=== PATIENT | male | born 1950 | race Caucasian/White ===

== ENCOUNTER 2016-06-03 07:29 | Day surgery (SDC) | payer MEDICARE, OTHER ==
[2016-05-30 13:22] LABS: HEMATOCRIT 40.2 % (40.0-51.0); HEMOGLOBIN 13.7 g/dL (13.6-17.8)
[2016-05-30 13:40] LABS: BUN (BLOOD UREA NITROGEN) 16 MG/DL (6-23); CALCIUM, SERUM 8.3 MG/DL (8.5-10.4); CHLORIDE, SERUM 108 MMOL/L (96-112); CO2 (CARBON DIOXIDE) 27 MMOL/L (24-34); GFR AFRICAN AMERICAN 80 ML/MIN (>=60); GFR NON AFRICAN AMERICAN 69 ML/MIN (>=60); GLUCOSE, SERUM 97 MG/DL (60-99); POTASSIUM, SERUM 4.6 MMOL/L (3.5-5.3); SODIUM, SERUM 144 MMOL/L (135-148)
--- NOTE | ~2016-06-03 | OP ---
Record Of Operation [facility] [address] [place]. [address] NAME: GENOVEVA OLIVEIRA : 46 [place] [facility] [place] [id number] AGE: 66 ADM/REG DATE : 06/03/16 MR#: [id number] REPORT SERV DATE: 06/03/16 DICTATED BY: Beau KENT DATE: 06/03/16 REPORT STATUS : Draft TRANSCRIBED BY: MODL DATE: 06/03/16 DATE OF PROCEDURE: 06/03/2016 PREOPERATIVE DIAGNOSIS: Prostate cancer on active surveillance, PSA 7.31. POSTOPERATIVE DIAGNOSIS: Prostate cancer on active surveillance, PSA 7.31. PROCEDURE: Transrectal ultrasound-guided needle biopsy of the prostate. ANESTHESIA: MAC. COMPLICATIONS: None. DRAINS: None. BRIEF HISTORY: Mr. 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 He has been managed with active surveillance. His recent PSA was 7.31. He is here for surveillance biopsy. The risks of bleeding, infection, anesthesia, inability to detect cancer even if present, etc., were all discussed. There were no unanswered questions. DESCRIPTION OF PROCEDURE: Under excellent MAC anesthesia, the patient was placed in a left lateral decubitus position, knees to chest. Prostate gland measured approximately 40 mL. The biopsy gun was used to perform bilateral prostate biopsies, two from the left base, three from the left mid gland, two from the left apex, similarly two from the right base, three from the right mid gland, and two from the right apex. The patient tolerated the procedure well. There was minimal bleeding. We will discharge as an outpatient with the following instructions. DISCHARGE INSTRUCTIONS: 1. Home today. 2. Follow up in my office in one week to review pathology. 3. Call for fever or excessive bleeding. APRYL/AXEL Beau Kent M.D. / [id number] CC: Vini Carty M.D.
[~2016-06-03 07:29] MED LIST: ASAB PO; ASABAYER PO; AUG250 PO; BETAP120 PO; BETAPACE80 PO; CARDCD120 PO; CARDCD180 PO; CENTRUM PO; CIP5 PO; COUMADIN6 MG PO; DIGITEK0.25 MG PO; DILT-XR180 MG PO; DSS PO; ELIQUIS 5 MG TAB5 MG PO; LEVAQUIN750 MG PO; LEVOTHYROXIN100 MCG PO; LIPITOR20 PO; LOP25 PO; METPAKSF PO; OCUVITE PO; RYTHMOL225 MG PO; STOOL SOFTEN100 MG PO; SYN1 PO; [UNRECOGNIZED DRUG - CODE]; [UNRECOGNIZED DRUG - OTHER]
[2016-12-04] MEDS ORDERED: OCUVITE PO (14:10)
== END 2016-06-03 16:55 | disposition home or self-care (01) ==
LOC: SDC 07:29
PROC: 0V9 Male Reproductive System, Drainage (ICD-10-PCS; principal; 2016-06-03 09:00)
DX: C61 Malignant neoplasm of prostate (principal); Z87.01 Personal history of pneumonia (recurrent); I49.9 Cardiac arrhythmia, unspecified; I48.91 Unspecified atrial fibrillation; H91.90 Unspecified hearing loss, unspecified ear; I10 Essential (primary) hypertension; E03.9 Hypothyroidism, unspecified; Z79.01 Long term (current) use of anticoagulants; Z79.899 Other long term (current) drug therapy; Z98.890 Other specified postprocedural states
CPT/HCPCS: 76872; 76998; 80048; 85014; 85018; 88305; 93005; J2250; J2405; J3010